=== PATIENT | male | born 1975 | race Two or more races ===

== ENCOUNTER 2020-06-18 13:13 | Emergency (ER) | payer OTHER ==
[~2020-06-18] VITALS: Ht 170.2 cm; Wt 70.0 kg
[~2020-06-18 13:13] MED LIST: CYCL-259 PO; PIRO20CA2 PO; SULF500T47 PO
--- NOTE | 2020-06-18 13:19 | NUR ---
THIS TECH DID EKG
[2020-06-18] MEDS ORDERED: PLEASE ENTER HEIGHT AND WEIGHT MC SCH (13:22)
[2020-06-18] MEDS ORDERED: LORazepam 2 MG/ML, 1ML ONE ×3 (13:24→14:23)
[2020-06-18] MEDS ORDERED: LORazepam 2 MG/ML, 1ML IVPush ONE (13:30)
[2020-06-18] MEDS ORDERED: SODIUM CHLORIDE FLUSH 10ML SYR IVF ONE (13:30)
[2020-06-18 13:43] LABS: BASOPHILS # (AUTO) 0.01 x10^3/uL (0-0.1); BASOPHILS % (AUTO) 0 % (0-1); EOSINOPHILS # (AUTO) 0.02 x10^3/uL (0-0.4); EOSINOPHILS % (AUTO) 0 % (1-7); LYMPHOCYTES # (AUTO) 0.44 x10^3/uL (1-3.4); LYMPHOCYTES % (AUTO) 9 % (22-44); MD NO; MEAN CORPUSCULAR HEMOGLOBIN 33.7 pg (27.5-34.5); MEAN CORPUSCULAR VOLUME 99.2 fL (81-97); MEAN PLATELET VOLUME 8.1 fL (7.4-10.4); MONOCYTES # (AUTO) 0.51 x10^3/uL (0.2-0.8); MONOCYTES % (AUTO) 11 % (2-9); NEUTROPHILS # (AUTO) 3.72 x10^3/uL (1.8-6.8); NEUTROPHILS % (AUTO) 79 % (42-75); PLATELET COUNT 185 x10^3/uL (130-400); RED BLOOD COUNT 4.29 x10^6/uL (4.38-5.82); RED CELL DISTRIBUTION WIDTH 13.4 % (9.4-14.8)
[2020-06-18 13:54] LABS: ANION GAP 8 mmol/L (5-15); CALCIUM 8.7 mg/dL (8.5-10.1); CHLORIDE 107 mmol/L (98-107); CREATININE 0.78 mg/dL (0.7-1.3)
[2020-06-18 13:55] LABS: ALBUMIN 3.8 g/dL (3.4-5.0)
[2020-06-18] MEDS ORDERED: MAGNESIUM SULFATE 1 GM, THIAMINE 100 MG, FOLIC ACID 1 MG, MVI ADULT 10 ML in SODIUM CHL... IV ONE (14:00)
--- NOTE | 2020-06-18 14:03 | NUR ---
biba for witnessed seizure at home occuring at 1220 this pm, seizure lasted 3-5 min. per pts family who witnessed seizure, no head injury noted. pt denies headache, denies neck pain. pt drinks 1/2 pint liquor daily, last drink last night. pt has been decreasing alcohol intake gradually over last week. report received from [facility]. fsbs [address] per [facility]. pt is a&o x 4 , neuro intact, tremulous. EKG taken on arrival by EDT. all monitors in place. pt medicated per emar, tolerated well. at bedside. awaiting lab results and ct at this time.
[2020-06-18] MEDS ORDERED: LORazepam 2 MG/ML, 1ML IVPush PRN (14:30)
--- NOTE | 2020-06-18 14:45 | NUR ---
prior to second dose ativan, pt remains tremoulous with hands extended, second dose ativan ordered and administered by task AZAEL Coelho. pt remains awake, alert, and oriented s/p second dose ativan. pt now able to state date. bite mcmahon noted to each side of tongue, no bleeding or airway compromise noted however. all monitors in place, pt is sinus tach rate 100-110s with no ectopy. no seizure activity noted while in ED. pts friend at bedside. IVF infusing at 500mL/hr per ERP Emelia's order. report given to AZAEL King at bedside.
--- NOTE | 2020-06-18 15:09 | NUR ---
REPORT FROM AZAEL BARRIENTOS. PT CARE RESPONSIBLITIES ASSUMED. IV INFUSION STILL RUNNING WITHOUT ISSUE. PT DENIES ANY NEEDS OR CONCERNS. CALL LIGHT IN REACH.
[2020-06-18 15:39] VITALS: BP 134/92
--- NOTE | 2020-06-18 16:29 | NUR ---
PT PROVIDED WITH EXTENSIVE EDUCATION ON ETOH AND WITHDRAWAL. PROVIDED WITH LIST OF SUBASTANCE ABUSE FACILITIES IN THE AREA. PT AND BOTH VERBALIZE UNDERSTANDING.
== END 2020-06-18 16:31 | disposition home or self-care (01) ==
LOC: ED 16:03
DX: R56.9 Unspecified convulsions (principal); F10.239 Alcohol dependence with withdrawal, unspecified; R55 Syncope and collapse; R41.0 Disorientation, unspecified; R00.0 Tachycardia, unspecified; Y90.0 Blood alcohol level of less than 20 mg/100 ml
CPT/HCPCS: 36415; 70450; 80048; 80307; 82040; 85025; 93005; 96365; 96375; 96376; 99285; J2060; J3411; J3475; J7030

== ENCOUNTER 2020-06-25 16:00 | Emergency (ER) | payer OTHER ==
[~2020-06-25] VITALS: Ht 170.2 cm; Wt 71.2 kg
[2020-06-25 16:01] VITALS: BP 122/72
== END 2020-06-25 17:37 | disposition home or self-care (01) ==
LOC: ED 17:00
DX: F41.1 Generalized anxiety disorder (principal); Z76.0 Encounter for issue of repeat prescription; Z72.9 Problem related to lifestyle, unspecified; R56.9 Unspecified convulsions
CPT/HCPCS: 99281